=== PATIENT | female | born 1980 ===

== ENCOUNTER 2021-06-14 06:00 | Day surgery (SDC) | payer OTHER ==
[2021-06-14] MEDS ORDERED: PERCOCET 5-3251 EACH PO (11:08)
== END 2021-06-14 18:10 | disposition home or self-care (01) ==
LOC: CIR.AMB 06:00
PROVIDERS: ATTEND Surgery
DX: K64.4 Residual hemorrhoidal skin tags (principal); K64.8 Other hemorrhoids